=== PATIENT | female | born 1965 | race Asian ===

== ENCOUNTER 2017-05-21 10:17 | Observation (INO) | payer SELFPAY ==
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
[2017-05-21] MEDS ORDERED: LET GEL TOPICAL 1 EA SYR TP ONE (11:29)
[2017-05-21] MEDS ORDERED: IBUPROFEN 600 MG TAB PO ONE (12:50)
[2017-05-21] MEDS ORDERED: IOPAMIDOL (ISOVUE-300) 100 ML BTL ONE (14:11)
[2017-05-21 14:22] LABS: % IMMATURE GRANULYOCYTES 0.3 % (0.0-1.1); ABSOLUTE IMMATURE GRANULOCYTES 0.04 10^3/uL (0.00-0.10); ADD DIFF? NO; ADD MORPH? NO; ADD SCAN? NO; ATYPICAL LYMPHOCYTE FLAG 0 (0-99); FRAGMENT RBC FLAG 0 (0-99); HEMATOCRIT 39.5 % (38.0-47.0); HEMOGLOBIN 13.1 g/dL (12.6-16.3); LEFT SHIFT FLG 0 (0-99); LIPEMIA HEMOLYSIS FLAG 80 (0-99); MEAN CELL HEMOGLOBIN 30.5 pg (27.9-34.1); MEAN CELL HEMOGLOBIN CONCENTR. 33.2 g/dL (32.4-36.7); MEAN CELL VOLUME 92.1 fL (81.5-99.8); MEAN PLATELET VOLUME 10.6 fL (8.7-11.7); PLATELET CLUMPS FLAG 20 (0-99); PLATELET COUNT 255 10^3/uL (150-400); RED BLOOD CELL COUNT 4.29 10^6/uL (4.18-5.33); RED CELL DISTRIBUTION WIDTH 13.6 % (11.5-15.2)
[2017-05-21] MEDS ORDERED: HYDROCODONE/APAP 5/325 TAB PO ONE (15:33)
[2017-05-21 15:47] LABS: COLOR YELLOW; LEUKOCYTE ESTERASE,URINE 1+ (NEGATIVE); NITRITE,URINE NEGATIVE (NEGATIVE)
[2017-05-21 15:49] LABS: MUCUS TRACE /lpf (NONE-1+)
[2017-05-21] MEDS ORDERED: ONDANSETRON 4 MG/2 ML VIAL IVP PRN (16:11)
[2017-05-21] MEDS ORDERED: HYDROCODONE/APAP 5/325 TAB PO PRN (16:11)
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
[2017-05-21] MEDS ORDERED: HYDROmorphONE/DILAUDID 1 MG/ML SYR IVP PRN (16:34)
[2017-05-21] MEDS: BACITRACIN ZINC 14.2 GM OINTTUBE TP SCH (20:13)
[2017-05-21] MEDS: IBUPROFEN 600 MG TAB PO SCH (20:43)
[2017-05-22] MEDS: IBUPROFEN 600 MG TAB PO SCH (05:42)
[2017-05-22] MEDS: BACITRACIN ZINC 14.2 GM OINTTUBE TP SCH (08:04)
[2017-05-22 08:29] VITALS: BP 114/87; PULSE 59; RESP 12; TEMP 98.7; O2SAT 94
--- NOTE | 2017-05-22 08:35 | SOAPPROG ---
SOAP Progress Note Assessment/Plan: Assessment/Plan: addendum to yesterdays h&p spoke with Dr Nguyen (hand surgery) Pt to f/u with her at the office next week thumb spica in place 05/22/17 08:34 Objective: Vital Signs Temp Pulse Resp BP Pulse Ox 37.1 C 59 L 12 114/87 H 94 05/22/17 08:29 05/22/17 08:29 05/22/17 08:29 05/22/17 08:29 05/22/17 08:29 05/21/17 05/22/17 05/23/17 05:59 05:59 05:59 Intake Total 100 Balance 100 ICD10 Worksheet Patient Problems: Problems Problem Status Onset Fracture of scaphoid of right wrist Acute Fracture of transverse process of thoracic vertebra Acute Multiple fractures of ribs of left side Acute Pneumothorax on left Acute
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
== END 2017-05-22 13:40 | disposition home or self-care (01) ==
LOC: F3N 17:07
PROVIDERS: ADMIT Surgery; ATTEND Surgery
PROC: 2W3EX1Z Immobilization of Right Hand using Splint (ICD-10-PCS; principal; 2017-05-21)
DX: S22.42XA Multiple fractures of ribs, left side, initial encounter for closed fracture (principal); S62.024A Nondisplaced fracture of middle third of navicular [scaphoid] bone of right wrist, initial encounter for closed fracture; S22.018A Other fracture of first thoracic vertebra, initial encounter for closed fracture; S27.0XXA Traumatic pneumothorax, initial encounter; S00.91XA Abrasion of unspecified part of head, initial encounter; V18.0XXA Pedal cycle driver injured in noncollision transport accident in nontraffic accident, initial encounter; Y93.55 Activity, bike riding; Y92.414 Local residential or business street as the place of occurrence of the external cause; Y99.8 Other external cause status
CPT/HCPCS: 82947-QW; 92523-GN; 97161-GP; 97167-GO; G0378; L3908; Q9967